=== PATIENT | male | born 1950 | race Caucasian/White ===

== ENCOUNTER 2017-11-28 09:03 | Outpatient (CLI) | payer MEDICARE ==
[2017-11-28 09:43] LABS: #Eosinphils 0.1 thou/uL (0.0-0.7); #Lymphocytes 1.9 thou/uL (1.20-3.40); #Monocytes 0.7 thou/uL (0.11-0.59); %Basophils 0.5 % (0.0-1.0); %Eosinophils 1.6 % (0.0-10.0); %Lymphocytes 33.8 % (21.0-51.0); %Monocytes 11.3 % (0.0-10.0); %Neutrophils 52.8 % (42.0-75.0); Hemoglobin 14.5 g/dL (14.0-18.0); Mean Corpuscular HGB CONC 34.1 g/dL (32.0-36.0); Mean Corpuscular Hemoglobin 32.6 pg (27.0-31.0); Mean Corpuscular Volume 95.7 fL (78.0-98.0); Mean Platelet Volume 6.9 fL (7.4-10.4); Platelet Count 141 thou/uL (130-400); RBC Distribution Width 12.1 % (11.5-14.5); Red Blood Cell (RBC) Count 4.44 mill/uL (4.70-6.10); White Blood Cell (WBC) Count 5.7 thou/uL (4.8-10.8)
[2017-11-28 10:13] LABS: Anion Gap 12 mmol/L (10-20); BUN (Urea Nitrogen) 17 mg/dL (8.4-25.7); Calc. Creatinine Clearance 0 mL/min (70-130); Calcium 9.2 mg/dL (7.8-10.44); Carbon Dioxide 24 mmol/L (23-31); Chloride 107 mmol/L (98-107); Estimated GFR-MDRD 86; Glucose 96 mg/dL (80-115); Potassium 4.2 mmol/L (3.5-5.1); Sodium 139 mmol/L (136-145)
== END 2017-11-28 09:04 | disposition home or self-care (01) ==
LOC: LABBT 09:03
PROVIDERS: ATTEND Orthopaedic Surgery
DX: Z01.818 Encounter for other preprocedural examination (principal); G56.03 Carpal tunnel syndrome, bilateral upper limbs
CPT/HCPCS: 80048; 85025; 93005; 93010

== ENCOUNTER 2017-11-29 08:56 | Day surgery (SDC) | payer MEDICARE ==
--- NOTE | 2017-11-28 09:28 | HP ---
HISTORY OF PRESENT ILLNESS: The patient is a 66-year-old male with a several year history of pain an d tingling in both hands, primarily in the median nerve distribution, right greater than left without injury. He has had persistent symptoms despite rest, restriction of activities, anti-inflammatory m edications, splinting and previous injections which gave temporary relief. Symptoms have increased a nd are now interfering with day-to-day activities and interfering with sleeping. PAST MEDICAL HISTORY: The patient is otherwise in good health. He has a history of chronic myelogen ous leukemia and has had a previous bone marrow transplant. PAST SURGICAL HISTORY: He has had previous knee arthroscopy and cataract surgery. CURRENT MEDICATIONS: Include Neurontin, omeprazole, cetirizine, multivitamins, ibuprofen and pseudoe phedrine. ALLERGIES: He has seasonal allergies, but no medical allergies. FAMILY HISTORY/SOCIAL HISTORY/REVIEW OF SYSTEMS: Otherwise unremarkable. PHYSICAL EXAMINATION: GENERAL: Reveals a healthy male. HEENT: Unremarkable. NECK: Supple. CHEST: Clear. HEART: Regular rate and rhythm. ABDOMEN: Soft, nontender. EXTREMITIES: Pertinent findings related to both wrists. There is no swelling or deformity. No poin t tenderness. There is full range of motion. There is questionable thenar atrophy on the left. The re is a positive Tinel sign bilaterally. Negative Phalen's test. Motor exam appears to be intact. There is some questionable decreased sensation in median nerve distribution. Previous nerve conducti on studies performed by Dr. Donahue reveal mild to moderate carpal tunnel syndrome bilaterally. IMPRESSION: Bilateral carpal tunnel syndrome, right symptomatic more than left. PLAN: Endoscopic, possible open, bilateral carpal tunnel release. The nature of the surgery, length of recovery, and potential complications such as infection, loss of motion, incomplete relief, nerve injury, recurrence, and need for additional treatment or repeat surgery have been discussed in nilam chand
[2017-11-28 09:49] VITALS: BMI 27.2
[2017-11-29] MEDS ORDERED: CEFAZOLIN/Water 2 GM/20 ML SYRINGE ONE (09:17)
[2017-11-29] MEDS ORDERED: Fentanyl 100 MCG/2 ML VIAL ONE ×2 (09:57→11:02)
[2017-11-29] MEDS ORDERED: Lidocaine 1% (PF) 30 ML VIAL ONE (10:00)
--- NOTE | 2017-11-29 12:21 | OP ---
DATE OF PROCEDURE: 11/29/2017 SURGEON: Gary Washington M.D. ANESTHESIA: General. PREOPERATIVE DIAGNOSIS: Bilateral carpal tunnel syndrome. POSTOPERATIVE DIAGNOSIS: Bilateral carpal tunnel syndrome. PROCEDURE: Bilateral endoscopic carpal tunnel release. NARRATIVE REPORT: After satisfactory anesthesia was induced in supine position, the patient was prep ped and draped in routine manner. The right side was addressed first. The right arm was elevated, e xsanguinated with an Esmarch bandage, and the tourniquet inflated to 250 mmHg. A 2 cm transverse inc ision was made in the proximal wrist flexion crease, carried down to subcutaneous tissues. Bleeding points were controlled with Bovie cautery. Using sharp and blunt dissection, a distally based flap o f a deep forearm fascia was developed and retracted distally. Palmaris longus tendon was retracted r adially. Proximal edge of the deep forearm fascia was split under direct visualization with small sc issors to make sure there was no proximal impingement of the median nerve. Synovium elevator was int roduced beneath the transverse carpal ligament and the synovium cleaned from the undersurface. Carpa l tunnel dilators were inserted. The [employer] RADHA endoscopic carpal tunnel system was introduced beneath the transverse carpal ligament in line with the ring finger. The distal edge of the ligament was eas shankar identified and divided in a distal to proximal direction by pulling the trigger of the assembly, engaging the knife, and withdrawing the scope proximally. This was done in several stages to make dalton re there was complete division of the transverse carpal ligament which was documented with the video printer. After withdrawing the scope, a carpal tunnel dilator could be inserted into the carpal tunn el and there was markedly improved passage and subcutaneous position of the instrument. The scope wa s reintroduced into the carpal tunnel. There was wide separation of the 2 leaves of the transverse c arpal ligament. The tourniquet was released after 5 minutes and there was no excessive bleeding. Th e scope was withdrawn. The wound was thoroughly irrigated and closed with running subcuticular 3-0 n ylon. Sterile dressing was applied and the patient immobilized in a Velcro wrist splint. An identic al procedure was then performed on the left side with the tourniquet time being 6 minutes. After gabby lication of both dressings the patient was awakened and taken to the recovery room in stable conditio n. There were no apparent intraoperative complications. The estimated blood loss was negligible. The patient will be discharged home in satisfactory condition. He was instructed on ice, elevation, and given written wound care instructions. He is given a prescription for [place] 5 for pain, 40 table ts. He will be rechecked in my office in 8 days or sooner if there are any problems prior to that ti me.
[2017-11-29] MEDS ORDERED: HYDROcodone/Acetaminophen 5/325 mg Tablet ONE (12:40)
[2017-11-29] MEDS ORDERED: Dexamethasone 20 MG/5 ML VIAL ONE (13:52)
[2017-11-29] MEDS ORDERED: Ondansetron HCl/PF 4 MG/2 ML Vial ONE (13:52)
[2017-11-29] MEDS ORDERED: PROPOFOL 200 MG/20 ML VIAL ONE (13:52)
[2017-11-29] MEDS ORDERED: Lidocaine 1% PF 5 ML VIAL ONE (13:52)
== END 2017-11-29 13:15 | disposition home or self-care (01) ==
LOC: SDC 08:56
PROVIDERS: ATTEND Orthopaedic Surgery
PROC: 01N54ZZ Release Median Nerve, Percutaneous Endoscopic Approach (ICD-10-PCS; principal; 2017-11-29)
PROC: 01N54ZZ Release Median Nerve, Percutaneous Endoscopic Approach (ICD-10-PCS; 2017-11-29)
DX: G56.03 Carpal tunnel syndrome, bilateral upper limbs (principal); J30.2 Other seasonal allergic rhinitis; Z79.899 Other long term (current) drug therapy
CPT/HCPCS: J1100; J2001; J2405; J2704; J3010

== ENCOUNTER 2023-10-18 16:00 | Outpatient (CLI) | payer MEDICARE | END 2023-10-18 16:01 | disposition home or self-care (01) | LOC: SLEEPLAB 16:00 | PROVIDERS: ATTEND Internal Medicine | DX: G47.33 Obstructive sleep apnea (adult) (pediatric) (principal); E66.9 Obesity, unspecified; K21.9 Gastro-esophageal reflux disease without esophagitis; R06.83 Snoring; R53.83 Other fatigue; G47.00 Insomnia, unspecified; Z68.31 Body mass index [BMI] 31.0-31.9, adult | CPT/HCPCS: 95800 ==